=== PATIENT | female | born 1960 | race Caucasian/White ===

== ENCOUNTER 2025-01-29 17:02 | Emergency (ER) | payer MEDICARE ==
[~2025-01-29] VITALS: Ht 165.1 cm; Wt 70.4 kg
[2025-01-29] MEDS ORDERED: NICARDIPINE 100 MG in SODIUM CHLORIDE 0.9% 60 ML IV ONE ×2 (17:30→19:00)
[2025-01-29] MEDS ORDERED: MANNITOL 20% 250 ML IV ONE (17:30)
[2025-01-29] MEDS: LABETALOL 5MG/ML 4ML INJ IV ONE (17:39)
[2025-01-29] MEDS: ONDANSETRON HCL 4MG/2ML INJ IV STA (17:39)
[2025-01-29] MEDS: DEXAMETHASONE 10 MG/ML VIAL IV ONE (17:42)
[2025-01-29] MEDS: PROPOFOL 10MG/ML 100ML 100 ML IV ONE ×2 (17:50→19:05)
[2025-01-29] MEDS: ETOMIDATE 2MG/ML 10ML VIAL IV ONE (17:50)
[2025-01-29] MEDS: ROCURONIUM BROMIDE 10MG/ML VIAL 5ML IV ONE (17:50)
[2025-01-29] MEDS: NICARDIPINE 40 MG/200 ML PREMIX 200 ML IV PRN (17:57)
[2025-01-29 18:11] LABS: BASOPHILS % 0.7 % (0.0-2.0); EOSINOPHILS % 1.5 % (0.0-5.0); HEMATOCRIT. 41.7 % (36.0-48.0); HEMOGLOBIN. 13.8 g/dL (12.0-16.0); LYMPHOCYTES % 19.6 % (20.0-50.0); MEAN CORPUSCULAR HEMOGLOBIN 29.5 pg (28.0-32.0); MEAN CORPUSCULAR HGB CONC 33.1 g/dL (31.0-37.0); MEAN CORPUSCULAR VOLUME 89.2 fL (81.0-99.0); MEAN PLATELET VOLUME 8.4 fl (7.4-10.4); MONOCYTES % 4.1 % (2.0-8.0); NEUTROPHILS % 74.1 % (40.0-76.0); PLATELET 179 x1000/uL (130-400); RED BLOOD CELL COUNT 4.67 mill/uL (4.2-5.4); RED CELL DISTRIBUTION WIDTH 13.8 % (11.6-14.6); WHITE BLOOD COUNT 5.4 x1000/uL (4.5-11.0)
[2025-01-29] MEDS: MANNITOL 20% 250 ML IV NR (18:13)
[2025-01-29] MEDS: LEVETIRACETAM 1000MG PREMIX 100 ML IV ONE (18:16)
[2025-01-29 18:18] LABS: CHLORIDE 100 mEq/L (98-107); POTASSIUM 2.9 mEq/L (3.5-5.1); SODIUM 138 mEq/L (136-145)
[2025-01-29 18:19] LABS: CALCIUM 8.7 mg/dL (8.7-10.4); CARBON DIOXIDE 28 mEq/L (21-32)
[2025-01-29 18:24] LABS: CREATININE 0.7 mg/dL (0.6-1.0); GLUCOSE 143 mg/dL (70-105); UREA NITROGEN BLOOD 15 mg/dL (9-23)
[2025-01-29 18:25] LABS: ETHANOL BLOOD < 10 mg/dL (<10); TROPONIN I HIGH SENSITIVITY 5 ng/L (3.0-34)
[2025-01-29 18:37] LABS: PROTHROMBIN TIME 10.3 sec (9.6-11.0)
[2025-01-29 18:40] LABS: LACTIC ACID 2.3 mmol/L (0.4-2.0)
[2025-01-29 18:45] VITALS: PULSE 89; TEMP 36.1; O2SAT 100
[2025-01-29 19:05] VITALS: BP 156/67; RESP 19; O2SAT 100
== END 2025-01-29 19:22 | disposition short-term general hospital (02) ==
LOC: ER 17:02
DX: I16.1 Hypertensive emergency (principal); J96.00 Acute respiratory failure, unspecified whether with hypoxia or hypercapnia; I60.9 Nontraumatic subarachnoid hemorrhage, unspecified; I10 Essential (primary) hypertension; Z79.52 Long term (current) use of systemic steroids
CPT/HCPCS: 71045; 93005; 96367; 96368; 96365; 96375; 80048; 80320; 83605; 85025; 85610; 84484; 36415; 70450; 31500; 99291; J1953; J1100; J3490 ×3; J2405; J2704; J7050; 94002; 94070; G0480